=== PATIENT | female | born 1940 | race Caucasian/White ===

== ENCOUNTER 2017-11-12 07:51 | Day surgery (SDC) | payer OTHER ==
[2017-11-12] MEDS ORDERED: TETRACAINE 0.5% OPHTH 1 DOSE AFFEYE ONE ×2 (08:20→10:41)
[2017-11-12] MEDS ORDERED: VIGAMOX 0.5% OPHTH 1 DOSE AFFEYE ONE ×4 (08:21→10:50)
[2017-11-12] MEDS ORDERED: NS 500 ML IV 500 ML IV ONE (08:24)
[2017-11-12] MEDS ORDERED: PROLENSA OPHTH 1 DOSE AFFEYE ONE (08:32)
[2017-11-12] MEDS ORDERED: ALPHAGAN-P OPHTH 1 DOSE AFFEYE ONE (08:33)
[2017-11-12] MEDS ORDERED: MYDRIACIL OPHTH 1 DOSE AFFEYE ONE ×3 (08:34→08:36)
[2017-11-12] MEDS ORDERED: AK-DILATE 2.5% OPHTH 1 DOSE OP ONE ×3 (08:34→08:36)
[2017-11-12] MEDS ORDERED: CYCLOGYL 1% OPHTH 1 DOSE OP ONE ×3 (08:34→08:36)
[2017-11-12] MEDS ORDERED: TESSALON PERLES PO ONE (10:13)
[2017-11-12] MEDS ORDERED: BETADINE OPHTH SOLN 5% EACHEYE ONE (10:41)
[2017-11-12] MEDS ORDERED: ADRENALINE CHL INJ IJ ONE (10:50)
[2017-11-12] MEDS ORDERED: XYLOCAINE-MPF 1% IJ ONE (10:50)
[2017-11-12] MEDS ORDERED: DUOVISC IO ONE (10:50)
[2017-11-12] MEDS ORDERED: BSS OPHTH (PLAIN) 500 ML with VANCOMYCIN HCL 500 MG VIAL 25 MG, ADRENALINE CHL INJ 1 MG IR ONE ×3 (10:50)
[2017-11-12] MEDS ORDERED: TobraDEX OPHTH SUSP 1 DOSE AFFEYE ONE (11:00)
[2017-11-12 11:30] VITALS: BP 124/60
[2017-11-12] MEDS ORDERED: DIPRIVAN VIAL ONE (15:48)
[2017-11-12] MEDS ORDERED: VERSED ONE (15:48)
[2017-11-12] MEDS ORDERED: XYLOCAINE 1 % (PLAIN) ONE (15:48)
== END 2017-11-12 11:21 | disposition home or self-care (01) ==
LOC: SURG1 07:51
PROVIDERS: ATTEND Ophthalmology
PROC: 08RJ3JZ Replacement of Right Lens with Synthetic Substitute, Percutaneous Approach (ICD-10-PCS; principal; 2017-11-12 14:15)
PROC: 08DJ3ZZ Extraction of Right Lens, Percutaneous Approach (ICD-10-PCS; principal; 2017-11-12 14:15)
DX: H25.11 Age-related nuclear cataract, right eye (principal); H25.011 Cortical age-related cataract, right eye
CPT/HCPCS: 99100; A4217; J0170; J2001; J2250; J3370; J3490

== ENCOUNTER 2017-11-26 10:53 | Day surgery (SDC) | payer OTHER ==
[2017-11-26] MEDS ORDERED: TETRACAINE 0.5% OPHTH 1 DOSE AFFEYE ONE ×3 (11:17→14:28)
[2017-11-26] MEDS ORDERED: VIGAMOX 0.5% OPHTH 1 DOSE AFFEYE ONE ×5 (11:20→14:41)
[2017-11-26] MEDS ORDERED: NS 500 ML IV 500 ML IV ONE (11:21)
[2017-11-26] MEDS ORDERED: PROLENSA OPHTH 1 DOSE AFFEYE ONE (11:32)
[2017-11-26] MEDS ORDERED: ALPHAGAN-P OPHTH 1 DOSE AFFEYE ONE (11:34)
[2017-11-26] MEDS ORDERED: MYDRIACIL OPHTH 1 DOSE AFFEYE ONE ×3 (11:35→11:40)
[2017-11-26] MEDS ORDERED: CYCLOGYL 1% OPHTH 1 DOSE OP ONE ×3 (11:35→11:40)
[2017-11-26] MEDS ORDERED: AK-DILATE 2.5% OPHTH 1 DOSE OP ONE ×3 (11:35→11:40)
[2017-11-26] MEDS ORDERED: BETADINE OPHTH SOLN 5% EACHEYE ONE (14:22)
[2017-11-26] MEDS ORDERED: BSS OPHTH (PLAIN) 500 ML with VANCOMYCIN HCL 500 MG VIAL 25 MG, ADRENALINE CHL INJ 1 MG IR ONE ×6 (14:29)
[2017-11-26] MEDS ORDERED: ADRENALINE CHL INJ IJ ONE (14:29)
[2017-11-26] MEDS ORDERED: DUOVISC IO ONE (14:29)
[2017-11-26] MEDS ORDERED: XYLOCAINE-MPF 1% IJ ONE (14:29)
[2017-11-26] MEDS ORDERED: DIPRIVAN VIAL ONE (15:21)
[2017-11-26] MEDS ORDERED: VERSED ONE (15:21)
[2017-11-26 17:54] VITALS: BP 174/74
== END 2017-11-26 15:13 | disposition home or self-care (01) ==
LOC: SURG1 10:53
PROVIDERS: ATTEND Ophthalmology
PROC: 08DK3ZZ Extraction of Left Lens, Percutaneous Approach (ICD-10-PCS; principal; 2017-11-26 19:00)
PROC: 08RK3JZ Replacement of Left Lens with Synthetic Substitute, Percutaneous Approach (ICD-10-PCS; principal; 2017-11-26 19:00)
DX: H25.12 Age-related nuclear cataract, left eye (principal); H25.012 Cortical age-related cataract, left eye
CPT/HCPCS: 99100; A4217; J0170; J2250; J3370; J3490